=== PATIENT | female | born 1985 | race Caucasian/White ===

== ENCOUNTER 2016-11-20 12:45 | Emergency (ER) | payer OTHER ==
[2016-11-20] MEDS ORDERED: IBUPROFEN 600 MG TABLET PO STA (14:21)
[2016-11-20] MEDS ORDERED: IBUPROFEN 600 MG TABLET PO ONE (14:25)
[2016-11-20] MEDS ORDERED: ACETAMINOPHEN 325 MG TABLET PO STA (15:28)
[2016-11-20] MEDS ORDERED: ACETAMINOPHEN 325 MG TABLET PO ONE (15:29)
== END 2016-11-20 15:44 | disposition home or self-care (01) ==
DX: R05 Cough (principal); R07.89 Other chest pain; J45.909 Unspecified asthma, uncomplicated; Z87.891 Personal history of nicotine dependence
CPT/HCPCS: 71020; 93005; 93010; 99283; 99284; A9270

== ENCOUNTER 2016-12-29 13:24 | Outpatient (CLI) | payer OTHER ==
[2016-12-29] MEDS ORDERED: ALBUTEROL NEB 2.5 MG/3 ML INH ONE (13:57)
== END 2016-12-29 13:25 | disposition home or self-care (01) ==
DX: R06.02 Shortness of breath (principal)
CPT/HCPCS: 94060; J7613

== ENCOUNTER 2017-05-21 07:44 | Outpatient (CLI) | payer OTHER ==
[2017-05-21] MEDS ORDERED: IOPAMIDOL-300 100 ML VIAL IVP ONE (10:22)
[2017-05-21] MEDS ORDERED: IOPAMIDOL-300 50 ML VIAL PO ONE (10:22)
--- NOTE | 2017-05-21 12:54 | CT Report ---
CT ABDOMEN AND PELVIS WITH CONTRAST: 05/21/2017 CLINICAL INDICATION: Change in bowel habits, melena, bloating. TECHNIQUE: Axial CT images of the abdomen and pelvis were obtained with 100 mL Isovue-300 intravenou sly as well as oral contrast. In accordance with CT protocol optimization, one or more of the following dose reduction techniques w ere utilized for this exam: automated exposure control, adjustment of mA and/or KV based on patient size, or use of iterative reconstructive technique. FINDINGS: Limited evaluation of the lung bases is unremarkable. Abdomen: The liver, spleen, pancreas, kidneys, and adrenal glands are unremarkable. No bowel dilata tion, free gas, or free fluid is present. No abdominal adenopathy is seen. The gallbladder is not d ilated. Pelvis: The appendix is seen in the right lower quadrant, and is normal in caliber. No pelvic adeno zaira or free fluid is present. The pelvic organs appear unremarkable. Osseous structures are unremarkable. IMPRESSION: NORMAL CT OF THE ABDOMEN AND PELVIS WITH CONTRAST. NO EVIDENT ETIOLOGY FOR PATIENT'S SY MPTOMS. JOB #: [id number] EXT JOB #:[id number]
== END 2017-05-21 07:45 | disposition home or self-care (01) ==
LOC: DI 07:44
PROVIDERS: ATTEND Internal Medicine Gastroenterology
DX: K92.1 Melena (principal); R19.4 Change in bowel habit; R14.0 Abdominal distension (gaseous); R07.89 Other chest pain
CPT/HCPCS: 74177; Q9967

== ENCOUNTER 2018-04-08 16:57 | Emergency (ER) | payer OTHER ==
[2018-04-08 17:08] VITALS: BP 131/75
[2018-04-08] MEDS ORDERED: SODIUM CHLORIDE 0.9% 1,000 ML IV ONE (18:35)
--- NOTE | 2018-04-08 18:39 | ED Physician Documentation ---
History of Present Illness - Stated complaint Stated Complaint: ABD/BACK PX/NUMBNESS/LIGHTHEADED - Chief complaint Chief Complaint: General - History obtained from History obtained from: Patient - History of Present Illness Timing: Today Pain level max: 3 Pain level now: 0 - Additonal information Additional information: Patient is a 32-year-old female who presents to the emergency department with left flank pain today. This is been intermittent. Nothing makes the pain better or worse. Currently is not having the pain. Has never had symptoms like this before. States that when the pain became more intense her hands and feet were tingling and numb. Has not taken anything for the pain. Review of Systems Ten Systems: 10 systems reviewed and negative Constitutional: denies: Fever, Chills Ears: denies: Ear pain Nose: denies: Rhinorrhea / runny nose, Congestion Throat: denies: Sore throat Respiratory: denies: Cough GI: denies: Vomiting, Diarrhea : denies: Discharge, Now EGA Skin: denies: Rash Musculoskeletal: denies: Neck pain, Back pain PD PAST MEDICAL HISTORY - Past Medical History Past Medical History: Yes Cardiovascular: None Respiratory: Asthma, Shortness of breath, Other Endocrine/Autoimmune: None HEENT: Chronic vision loss Psych: Depression Derm: Eczema - Past Surgical History 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 - Present Medications Home Medications: Ambulatory Orders Medication Instructions Recorded Confirmed Montelukast [Singulair] 10 mg PO DAILY 11/20/16 06/11/17 Cephalexin [Keflex] 500 mg PO Q6H #28 capsule 04/08/18 Methylphenidate HCl [Concerta] 36 mg PO 04/08/18 04/08/18 - Allergies Allergies/Adverse Reactions: Allergies Allergy/AdvReac Type Severity Reaction Status Date / Time lithium Allergy Nausea Verified 04/08/18 17:08 - Social History Does the pt smoke?: No Smoking Status: Former smoker Does the pt drink ETOH?: No Does the pt have substance abuse?: No PD ED PE NORMAL - Vitals Vital signs reviewed: Yes - General General: Alert and oriented X 3, No acute distress, Well developed/nourished - HEENT HEENT: PERRL, EOMI, Ears normal, Moist mucous membranes, Pharynx benign - Neck Neck: Supple, no meningeal sign, No JVD, No bruit - Cardiac Cardiac: RRR, No murmur, Strong equal pulses - Respiratory Respiratory: No respiratory distress, Clear bilaterally - Abdomen Abdomen: Normal bowel sounds, Soft, Non tender, Non distended - Back Back: No CVA TTP, No spinal TTP - Derm Derm: Warm and dry - Extremities Extremities: No edema - Neuro Neuro: Alert and oriented X 3, 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0 D-Dimer < 200.0 L Sodium Potassium Chloride Carbon Dioxide Anion Gap BUN Creatinine Estimated GFR (MDRD) Glucose Calcium Total Bilirubin AST ALT Alkaline Phosphatase Troponin I Total Protein Albumin Globulin Albumin/Globulin Ratio Lipase Urine Color YELLOW Urine Clarity CLEAR Urine pH 6.0 Ur Specific [place] <=1.005 Urine Protein NEGATIVE Urine Glucose (UA) NEGATIVE Urine Ketones NEGATIVE Urine Occult Blood NEGATIVE Urine Nitrite NEGATIVE Urine Bilirubin NEGATIVE Urine Urobilinogen 0.2 (NORMAL) Ur Leukocyte Esterase SMALL H Urine RBC 6-10 H Urine WBC 11-25 H Ur Squamous Epith Cells MOD Squamous H Urine Bacteria Many H Urine Yeast PRESENT Ur Microscopic Review INDICATED Urine Culture Comments NOT INDICATED Urine HCG, Qual NEGATIVE 04/08/18 04/08/18 18:42 18:42 WBC RBC Hgb Hct MCV MCH MCHC RDW Plt Count MPV Neut # (Auto) Lymph # (Auto) [place] # (Auto) Eos # (Auto) Baso # (Auto) Absolute Nucleated RBC Nucleated RBC % D-Dimer Sodium 135 Potassium 4.4 Chloride 105 Carbon Dioxide 24 Anion Gap 6.0 BUN 9 Creatinine 0.8 Estimated GFR (MDRD) 83 L Glucose 89 Calcium 9.1 Total Bilirubin 0.7 AST 15 ALT 18 Alkaline Phosphatase 33 L Troponin I < 0.04 Total Protein 7.1 Albumin 4.2 Globulin 2.9 Albumin/Globulin Ratio 1.4 Lipase 20 L Urine Color Urine Clarity Urine pH Ur Specific [place] Urine Protein Urine Glucose (UA) Urine Ketones Urine Occult Blood Urine Nitrite Urine Bilirubin Urine Urobilinogen Ur Leukocyte Esterase Urine RBC Urine WBC Ur Squamous Epith Cells Urine Bacteria Urine Yeast Ur Microscopic Review Urine Culture Comments Urine HCG, Qual PD MEDICAL DECISION MAKING - ED course Complexity details: reviewed results, re-evaluated patient, considered differential, d/w patient ED course: Patient is a 32-year-old female with a constellation of symptoms of unclear etiology at this time. Does appear to have a UTI and will treat her for this. No evidence of aortic dissection, pulmonary embolus, acute coronary syndrome. Does not appear clinically to have a ureteral stone. She is very well-appearing , nontoxic. Afebrile. No vomiting. Patient counseled regarding signs and symptoms for which I believe and urgent re-evaluation would be necessary. Patient with good understanding of and agreement to plan and is comfortable going home at this time This document was made in part using voice recognition software. While efforts are made to proofread this document, sound alike and grammatical errors may occur. - Sepsis Event Vital Signs: Oxygen O2 Source Room air Departure - Departure Disposition: 01 Home, Self Care Clinical Impression: Flank pain UTI (urinary tract infection) Qualifiers: Urinary tract infection type: acute cystitis Hematuria presence: with hematuria Qualified Code(s): N30.01 - Acute cystitis with hematuria Condition: Good Instructions: ED UTI Cystitis Female Follow-Up: your,doctor in 1 week. [Other] Prescriptions: Cephalexin [Keflex] 500 mg PO Q6H #28 capsule Comments: The cause of your symptoms is unclear today. You do appear to have a bladder infection and we will treat you for this. There are no signs of a heart issue, blood clot in the lungs or other acute issue at this time. Return if you worsen Discharge Date/Time: 04/08/18 20:08
[2018-04-08 18:57] LABS: BASOPHILS % (AUTO) 0.2 %; EOSINOPHILS # (AUTO) 0.1 10^3/uL (0.0-0.7); EOSINOPHILS % (AUTO) 0.8 %; HGB - HEMOGLOBIN 13.4 g/dL (12.0-16.0); LYMPHOCYTES # (AUTO) 2.9 10^3/uL (1.5-3.5); LYMPHOCYTES % (AUTO) 31.3 %; MEAN CORPUSCULAR HEMOGLOBIN 29.3 pg (27.0-31.0); MEAN CORPUSCULAR HGB CONC 34.3 g/dL (32.0-36.0); MEAN CORPUSCULAR VOLUME 85.3 fL (81.0-99.0); MEAN PLATELET VOLUME 8.7 fL (7.9-10.8); MONOCYTES # (AUTO) 0.3 10^3/uL (0.0-1.0); MONOCYTES % (AUTO) 3.7 %; PLT - PLATELET COUNT 274 10^3/uL (130-450); RED BLOOD COUNT 4.56 10^6/uL (4.20-5.40); RED CELL DISTRIBUTION WIDTH 13.2 % (12.0-15.0); WHITE BLOOD COUNT 9.3 x10^3/uL (4.8-10.8)
[2018-04-08 18:59] LABS: BILIRUBIN,URINE NEGATIVE (NEGATIVE); GLUCOSE, URINE (UA) NEGATIVE (NEGATIVE); KETONES,URINE (UA) NEGATIVE (NEGATIVE); LEUKOCYTE ESTERASE, URINE SMALL (NEGATIVE); NITRITE,URINE NEGATIVE (NEGATIVE); OCCULT BLOOD,URINE NEGATIVE (NEGATIVE); PROTEIN,URINE NEGATIVE (NEGATIVE); UROBILINOGEN,URINE 0.2 (NORMAL) E.U./dL (NORMAL)
[2018-04-08 19:06] LABS: CLARITY,URINE CLEAR (CLEAR); HCG UR QUAL NEGATIVE
[2018-04-08 19:08] LABS: ALBUMIN 4.2 g/dL (3.2-5.5); ALBUMIN/GLOBULIN RATIO 1.4 (1.0-2.2); BILIRUBIN,TOTAL 0.7 mg/dL (0.2-1.0); CALCIUM 9.1 mg/dL (8.5-10.3); CREATININE 0.8 mg/dL (0.4-1.0); TOTAL PROTEIN 7.1 g/dL (6.7-8.2)
[2018-04-08 19:17] LABS: BACTERIA,URINE Many /HPF (None Seen); SQUAMOUS EPITHELIAL CELL,UR MOD Squamous (<= Few); YEAST,URINE PRESENT
[2018-04-08] MEDS ORDERED: cephALEXin 250 MG CAPSULE PO STA (19:29)
== END 2018-04-08 20:08 | disposition home or self-care (01) ==
LOC: ED 16:57
DX: R10.9 Unspecified abdominal pain (principal); N30.01 Acute cystitis with hematuria; Z87.891 Personal history of nicotine dependence
CPT/HCPCS: 36415; 80053; 81001; 81025; 83690; 84484; 85025; 85379; 93005; 96360; 99283; A9270; 81003; 87086

== ENCOUNTER 2018-04-11 20:25 | Emergency (ER) | payer OTHER ==
[2018-04-11 21:41] LABS: BASOPHILS % (AUTO) 0.1 %; EOSINOPHILS # (AUTO) 0.1 10^3/uL (0.0-0.7); EOSINOPHILS % (AUTO) 1.1 %; HGB - HEMOGLOBIN 13.4 g/dL (12.0-16.0); LYMPHOCYTES # (AUTO) 3.2 10^3/uL (1.5-3.5); LYMPHOCYTES % (AUTO) 36.2 %; MEAN CORPUSCULAR HEMOGLOBIN 29.7 pg (27.0-31.0); MEAN CORPUSCULAR HGB CONC 34.3 g/dL (32.0-36.0); MEAN CORPUSCULAR VOLUME 86.6 fL (81.0-99.0); MEAN PLATELET VOLUME 9.2 fL (7.9-10.8); MONOCYTES # (AUTO) 0.5 10^3/uL (0.0-1.0); MONOCYTES % (AUTO) 5.3 %; NEUTROPHILS # (AUTO) 5.1 10^3/uL (1.5-6.6); NEUTROPHILS % (AUTO) 57.3 %; PLT - PLATELET COUNT 306 10^3/uL (130-450); RED CELL DISTRIBUTION WIDTH 13.5 % (12.0-15.0); WHITE BLOOD COUNT 8.9 x10^3/uL (4.8-10.8)
[2018-04-11 21:42] LABS: BILIRUBIN,URINE NEGATIVE (NEGATIVE); GLUCOSE, URINE (UA) NEGATIVE (NEGATIVE); KETONES,URINE (UA) NEGATIVE (NEGATIVE); LEUKOCYTE ESTERASE, URINE TRACE (NEGATIVE); NITRITE,URINE NEGATIVE (NEGATIVE); OCCULT BLOOD,URINE NEGATIVE (NEGATIVE); PH,URINE 5.5 PH (5.0-7.5); PROTEIN,URINE NEGATIVE (NEGATIVE); UROBILINOGEN,URINE 0.2 (NORMAL) E.U./dL (NORMAL)
[2018-04-11 21:42] LABS: ALBUMIN 4.2 g/dL (3.2-5.5); ALBUMIN/GLOBULIN RATIO 1.7 (1.0-2.2); BILIRUBIN,TOTAL 0.5 mg/dL (0.2-1.0); CREATININE 0.8 mg/dL (0.4-1.0); TOTAL PROTEIN 6.7 g/dL (6.7-8.2)
[2018-04-11 21:43] LABS: CLARITY,URINE CLEAR (CLEAR); HCG UR QUAL NEGATIVE
[2018-04-11 21:44] LABS: BACTERIA,URINE None Seen /HPF (None Seen); RBC,URINE None Seen /HPF (0-5); SQUAMOUS EPITHELIAL CELL,UR MANY Squamous (<= Few)
--- NOTE | 2018-04-11 22:02 | ED Physician Documentation ---
PD HPI ABD PAIN - Stated complaint Stated Complaint: FEMALE - History obtained from History obtained from: Patient - History of Present Illness Timing - onset: How many days ago (4) Timing - details: Gradual onset, Still present Quality: Cramping, Aching Location: Suprapubic Associated symptoms: Nausea. No: Fever, Vomiting, Diarrhea, Constipation Similar symptoms before: Work up / diagnostics, Treatment Recently seen: Clinic, Emergency Dept - Additional information Additional information: Patient is a 32 year old female with no significant past medical history who is presenting to the emergency department for suprapubic pain. patient was diagnosed with a urinary tract infection about three days prior. patient has been on keflex but states that she still has some symptoms. Patient saw her pmd who told her to continue with the treatment. Patient called the nurses line who told her to come to the emergency department. patient denies any fevers, sexual activity, vaginal bleeding or vaginal discharge. Review of Systems Constitutional: denies: Fever, Chills, Myalgias Cardiac: denies: Chest pain / pressure, Palpitations Respiratory: denies: Dyspnea, Cough, Wheezing GI: reports: Abdominal Pain, Nausea. denies: Abdominal Swelling, Vomiting, Constipation, Diarrhea : reports: Dysuria. 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 - Present Medications Home Medications: Ambulatory Orders Medication Instructions Recorded Confirmed Montelukast [Singulair] 10 mg PO DAILY 11/20/16 06/11/17 Cephalexin [Keflex] 500 mg PO Q6H #28 capsule 04/08/18 Methylphenidate HCl [Concerta] 36 mg PO 04/08/18 04/08/18 Ondansetron Odt [Zofran] 4 mg TL Q6H PRN #14 tablet 04/11/18 Phenazopyridine HCl [Pyridium] 200 mg PO TID PRN #6 tablet 04/11/18 - Allergies Allergies/Adverse Reactions: Allergies Allergy/AdvReac Type Severity Reaction Status Date / Time lithium Allergy Nausea Verified 04/11/18 22:16 - Social History Does the pt smoke?: No Smoking Status: Former smoker Does the pt drink ETOH?: No Does the pt have substance abuse?: No PD ED PE NORMAL - Vitals Vital signs reviewed: Yes - General General: Alert and oriented X 3, No acute distress, Well developed/nourished - HEENT HEENT: Atraumatic, PERRL, Moist mucous membranes - Neck Neck: Supple, no meningeal sign - Cardiac Cardiac: RRR - Respiratory Respiratory: No respiratory distress - Abdomen Abdomen: Soft, Non tender, Non distended - Back Back: No CVA TTP - Derm Derm: Normal color, Warm and dry - Extremities Extremities: No deformity - Neuro Neuro: Alert and oriented X 3 Eye Opening: Spontaneous Motor: Obeys Commands Verbal: Oriented GCS Score: 15 Results - Vitals Vitals: Vital Signs - 24 hr 04/11/18 22:27 Heart Rate 68 Respiratory 16 Rate Blood Pressure 113/75 O2 Saturation 100 Oxygen O2 Source Room air - Labs Labs: Laboratory Tests 04/11/18 04/11/18 04/11/18 21:20 21:20 21:29 WBC 8.9 RBC 4.50 Hgb 13.4 Hct 39.0 MCV 86.6 MCH 29.7 MCHC 34.3 RDW 13.5 Plt Count 306 MPV 9.2 Neut # (Auto) 5.1 Lymph # (Auto) 3.2 [place] # (Auto) 0.5 Eos # (Auto) 0.1 Baso # (Auto) 0.0 Absolute Nucleated RBC 0.00 Nucleated RBC % 0.0 Sodium 137 Potassium 3.9 Chloride 108 Carbon Dioxide 24 Anion Gap 5.0 L BUN 12 Creatinine 0.8 Estimated GFR (MDRD) 83 L Glucose 92 Calcium 9.0 Total Bilirubin 0.5 AST 13 ALT 15 Alkaline Phosphatase 34 L Total Protein 6.7 Albumin 4.2 Globulin 2.5 Albumin/Globulin Ratio 1.7 Lipase 20 L Urine Color YELLOW Urine Clarity CLEAR Urine pH 5.5 Ur Specific [place] 1.025 Urine Protein NEGATIVE Urine Glucose (UA) NEGATIVE Urine Ketones NEGATIVE Urine Occult Blood NEGATIVE Urine Nitrite NEGATIVE Urine Bilirubin NEGATIVE Urine Urobilinogen 0.2 (NORMAL) Ur Leukocyte Esterase TRACE H Urine RBC None Seen Urine WBC 0-3 Ur Squamous Epith Cells MANY Squamous H Urine Bacteria None Seen Ur Microscopic Review INDICATED Urine Culture Comments NOT INDICATED Urine HCG, Qual NEGATIVE PD MEDICAL DECISION MAKING - ED course Complexity details: reviewed old records, reviewed results, re-evaluated patient , considered differential, d/w patient ED course: Patient was seen and examined at bedside. patient was well appearing and in no distress. Patient's abdomen was soft, non tender, non distended. there was no cva tenderness. urine and labs were collected. when patient's labs and urine came back there was no sign of dehydration or systemic disease. urinalysis was improving. patient was treated with zofran and pyridium. while appendicitis, ovarian torsion, cholecystitis, pyelonephritis were all considered they were unlikely and there was no indication for imaging at this time. Patient was well appearing and in no distress and was stable for discharge with outpatient follow up. - Sepsis Event Vital Signs: Vital Signs - 24 hr 04/11/18 22:27 Heart Rate 68 Respiratory 16 Rate Blood Pressure 113/75 O2 Saturation 100 Oxygen O2 Source Room air Departure - Departure Disposition: 01 Home, Self Care Clinical Impression: UTI (urinary tract infection) Condition: Good Instructions: ED UTI Cystitis Female Follow-Up: primary,care provider [Other] - Within 3 Days Prescriptions: Ondansetron Odt [Zofran] 4 mg TL Q6H PRN #14 tablet PRN Reason: Nausea / Vomiting Phenazopyridine HCl [Pyridium] 200 mg PO TID PRN #6 tablet PRN Reason: dysuria Comments: Your urinalysis today showed that your symptoms are improving. You should finish your course of antibiotics. You can take pyridium, motrin and tylenol as needed for pain. You should stay well hydrated and increase your fluid intake. You may return to the emergency department at any time for new, worsening or uncontrollable symptoms. Discharge Date/Time: 04/11/18 22:36
[2018-04-11] MEDS ORDERED: PHENAZOPYRIDINE 100 MG TABLET PO STA (22:07)
[2018-04-11] MEDS ORDERED: ONDANSETRON ODT 4 MG TABLET TL STA (22:13)
[2018-04-11 22:30] VITALS: BP 113/75
== END 2018-04-11 22:36 | disposition home or self-care (01) ==
LOC: ED 20:25
DX: N39.0 Urinary tract infection, site not specified (principal); Z87.891 Personal history of nicotine dependence
CPT/HCPCS: 36415; 80053; 81001; 81025; 83690; 85025; 99282; 99283; A9270; Q0162; 81003; 87086

== ENCOUNTER 2018-09-16 12:43 | Emergency (ER) | payer OTHER ==
[2018-09-16 12:53] VITALS: BP 127/89
--- NOTE | 2018-09-16 13:47 | ED Physician Documentation ---
History of Present Illness - Stated complaint Stated Complaint: DIZZY/COUGH/SINUS PRESSURE - Chief complaint Chief Complaint: Abd Pain - History obtained from History obtained from: Patient - History of Present Illness Timing: Enter time (0200), Today - Additonal information Additional information: 32-year-old female who over the past 2 weeks has had a upper respiratory infection that appears to have cleared suddenly developed at 2:00 in the morning intense sharp periumbilical pain followed by flow through diarrhea for 2 hours. She had vomiting at that time as well. Her symptoms resolved by 4:30 AM and she is come to the emergency department for evaluation this morning. Review of Systems Constitutional: reports: Chills, Fatigue. denies: Fever Eyes: denies: Decreased vision Ears: denies: Ear pain Nose: reports: Rhinorrhea / runny nose, Congestion (improving) Throat: denies: Sore throat Cardiac: denies: Chest pain / pressure, Palpitations Respiratory: reports: Cough. 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 - Present Medications Home Medications: Ambulatory Orders Medication Instructions Recorded Confirmed Methylphenidate HCl [Concerta] 36 mg PO DAILY 04/08/18 04/08/18 Loratadine [Claritin] 10 mg ORAL QPM 09/16/18 09/16/18 cloNIDine HCl [Clonidine HCl] 0.1 mg ORAL QPM 09/16/18 09/16/18 - Allergies Allergies/Adverse Reactions: Allergies Allergy/AdvReac Type Severity Reaction Status Date / Time latex Allergy Rash Verified 09/16/18 12:53 lithium Allergy Nausea Verified 04/11/18 22:16 - Social History Does the pt smoke?: No Smoking Status: Former smoker Does the pt drink ETOH?: No Does the pt have substance abuse?: No PD ED PE NORMAL - Vitals Vital signs reviewed: Yes (tachy and hypertensive ) - General General: Alert and oriented X 3, No acute distress, Well developed/nourished - HEENT HEENT: Atraumatic, PERRL, EOMI, Ears normal, Moist mucous membranes, Pharynx benign, Dentition benign - Neck Neck: Supple, no meningeal sign, No bony TTP - Cardiac Cardiac: RRR, No murmur - Respiratory Respiratory: No respiratory distress, Clear bilaterally - Abdomen Abdomen: Normal bowel sounds, Soft, Non tender, Non distended, No organomegaly - Back Back: No CVA TTP, No spinal TTP - Derm Derm: Normal color, Warm and dry, No rash - Extremities Extremities: No deformity, No edema - Neuro Neuro: Alert and oriented X 3, No motor deficit, No sensory deficit, Normal speech Eye Opening: Spontaneous Motor: Obeys Commands Verbal: Oriented GCS Score: 15 - Psych Psych: Normal mood, Normal affect Results - Vitals Vitals: Vital Signs - 24 hr 09/16/18 12:48 Temperature 36.7 C Heart Rate 101 H Respiratory 18 Rate Blood Pressure 127/89 H O2 Saturation 100 Oxygen O2 Source Room air - Labs Labs: Laboratory Tests 09/16/18 13:45 Urine Color YELLOW Urine Clarity CLEAR Urine pH 6.0 Ur Specific [place] >=1.030 H Urine Protein NEGATIVE Urine Glucose (UA) NEGATIVE Urine Ketones NEGATIVE Urine Occult Blood TRACE-INTA Urine Nitrite NEGATIVE Urine Bilirubin NEGATIVE Urine Urobilinogen 0.2 (NORMAL) Ur Leukocyte Esterase NEGATIVE Ur Microscopic Review NOT INDICATED Urine Culture Comments NOT INDICATED Urine HCG, Qual NEGATIVE Procedures - Bedside sono Bedside sono by EMP: With use of bedside ultrasound the right upper quadrant is imaged and the gallbladder appears contracted and without obvious stone. The area is nontender to sonographic palpation. PD MEDICAL DECISION MAKING - ED course Complexity details: reviewed results, re-evaluated patient, considered differential, d/w patient ED course: 32-year-old female with what sounds like an improved and resolved upper respiratory tract infection has now developed an acute abdominal process that also appears to be resolved at the time of evaluation here in the emergency department. She did have some pizza last night I did check her gallbladder I did not see any obvious stones it does appears contracted and the patient has a nontender examination this afternoon in the emergency department. She is currently without symptoms. Departure - Departure Disposition: 01 Home, Self Care Clinical Impression: Gastroenteritis Instructions: ED Gastroenteritis Non Infec Follow-Up: LYRIC Varela [Provider Group]
[2018-09-16 14:11] LABS: BILIRUBIN,URINE NEGATIVE (NEGATIVE); GLUCOSE, URINE (UA) NEGATIVE (NEGATIVE); KETONES,URINE (UA) NEGATIVE (NEGATIVE); LEUKOCYTE ESTERASE, URINE NEGATIVE (NEGATIVE); NITRITE,URINE NEGATIVE (NEGATIVE); OCCULT BLOOD,URINE TRACE-INTA (NEGATIVE); PROTEIN,URINE NEGATIVE (NEGATIVE); UROBILINOGEN,URINE 0.2 (NORMAL) E.U./dL (NORMAL)
[2018-09-16 14:20] LABS: CLARITY,URINE CLEAR (CLEAR)
[2018-09-16 14:21] LABS: HCG UR QUAL NEGATIVE
== END 2018-09-16 14:35 | disposition home or self-care (01) ==
LOC: ED 12:43
DX: K52.89 Other specified noninfective gastroenteritis and colitis (principal); Z87.891 Personal history of nicotine dependence
CPT/HCPCS: 81001; 81003; 81025; 87086; 99283

== ENCOUNTER 2019-01-06 23:48 | Outpatient (CLI) | payer OTHER | END 2019-01-06 23:49 | disposition critical access hospital (66) | LOC: EMS 23:48 | PROVIDERS: ATTEND Surgery | DX: R07.9 Chest pain, unspecified (principal); R20.0 Anesthesia of skin | CPT/HCPCS: A0425; A0427 ==

== ENCOUNTER 2019-01-07 00:15 | Emergency (ER) | payer OTHER ==
[2019-01-07] MEDS ORDERED: KETOROLAC 15 MG/ML VIAL IVP STA (00:24)
--- NOTE | 2019-01-07 00:31 | ED Physician Documentation ---
PD HPI CHEST PAIN - Stated complaint Stated Complaint: CP RADIATING TO BACK - Chief complaint Chief Complaint: Cardiac - History obtained from History obtained from: Patient - History of Present Illness Timing - onset: How many hours ago (2) Timing - onset during: Rest Timing - duration: Hours (2) Timing - details: Abrupt onset Pain level max: 8 Pain level now: 7 Quality: Sharp Location: Other (R upper back) Radiation: No: Jaw, Neck, Back, Abdominal, Left upper extremity, Right upper extremity, Other Improved by: Rest Worsened by: Movement, Palpation Associated symptoms: No: Shortness of air, Diaphoresis, Nausea, Vomiting, Feeling faint / dizzy, General Weakness, Palpitations, Cough Similar symptoms before: Has not had sx before Recently seen: Not recently seen Review of Systems Constitutional: reports: Fever Nose: denies: Rhinorrhea / runny nose, Congestion Throat: denies: Sore throat Cardiac: reports: Chest pain / pressure (Right upper chest and right upper back pain) Respiratory: denies: Cough GI: denies: Abdominal Pain, Nausea, Vomiting, Diarrhea Skin: denies: Rash Musculoskeletal: denies: Neck pain Neurologic: denies: Focal weakness, Numbness, Headache PD PAST MEDICAL HISTORY - Past Medical History Cardiovascular: None Respiratory: Asthma, Shortness of breath, Other Endocrine/Autoimmune: None HEENT: Chronic vision loss Psych: Depression Derm: Eczema - Past Surgical History Past Surgical History: No /[employer]: Other - Present Medications Home Medications: Ambulatory Orders Medication Instructions Recorded Confirmed Methylphenidate HCl [Concerta] 36 mg PO DAILY 04/08/18 04/08/18 Loratadine [Claritin] 10 mg ORAL QPM 09/16/18 09/16/18 cloNIDine HCl [Clonidine HCl] 0.1 mg ORAL QPM 09/16/18 09/16/18 Doxycycline Hyclate 100 mg PO BID #20 capsule 01/07/19 Hydrocodone/Acetaminophen 1 - 2 each PO Q6H PRN #10 tablet 01/07/19 [Hydrocodon-Acetaminophen 5-325] - Allergies Allergies/Adverse Reactions: Allergies Allergy/AdvReac Type Severity Reaction Status Date / Time latex Allergy Rash Verified 09/16/18 12:53 lithium Allergy Nausea Verified 04/11/18 22:16 risperidone [From Risperdal] Allergy Unknown Verified 01/07/19 00:23 - Social History Does the pt smoke?: No Smoking Status: Former smoker Does the pt drink ETOH?: No Does the pt have substance abuse?: No PD ED PE NORMAL - Vitals Vital signs reviewed: Yes - General General: Alert and oriented X 3, No acute distress, Well developed/nourished - HEENT HEENT: PERRL, Moist mucous membranes - Neck Neck: Supple, no meningeal sign - Cardiac Cardiac: Strong equal pulses, Other (Tachycardic) - Respiratory Respiratory: No respiratory distress, Clear bilaterally - Abdomen Abdomen: Soft, Non distended, Other (Tender to palpation right upper quadrant. Positive Soni sign) - Back Back: No spinal TTP, Other (Tender to palpation right upper back, Worse with movement of the soulder as well.) - Derm Derm: Warm and dry - Extremities Extremities: No edema - Neuro Neuro: Alert and oriented X 3 - Psych Psych: Normal mood, Normal affect Results - Vitals Vitals: Vital Signs - 24 hr 01/07/19 01/07/19 01/07/19 00:15 00:28 01:03 Temperature 37.1 C Heart Rate 112 H 112 H 119 H Heart Rate [ Sitting] Heart Rate [ Standing] Heart Rate [ Supine] Respiratory 18 13 17 Rate Blood Pressure 133/81 H 122/76 Blood Pressure [Sitting] Blood Pressure [Standing] Blood Pressure [Supine] O2 Saturation 100 100 99 01/07/19 01/07/19 01/07/19 01:47 02:17 02:21 Temperature 38.2 C H Heart Rate 134 H Heart Rate [ 137 H Sitting] Heart Rate [ 163 H Standing] Heart Rate [ 117 H Supine] Respiratory 12 Rate Blood Pressure 115/72 Blood Pressure 118/78 [Sitting] Blood Pressure 102/72 [Standing] Blood Pressure 111/63 [Supine] O2 Saturation 99 01/07/19 01/07/19 01/07/19 02:54 04:05 05:00 Temperature 37.6 C H Heart Rate 126 H 126 H 116 H Heart Rate [ Sitting] Heart Rate [ Standing] Heart Rate [ Supine] Respiratory 19 20 14 Rate Blood Pressure 120/70 119/70 124/76 Blood Pressure [Sitting] Blood Pressure [Standing] Blood Pressure [Supine] O2 Saturation 99 100 100 Oxygen O2 Source Room air - EKG (time done) 0017 Rate: Rate (enter#) (114) Rhythm: Sinus tachycardia [place]: Normal Intervals: Normal [place] QRS: Normal Ischemia: Normal ST segments - Labs Labs: Laboratory Tests 01/07/19 01/07/19 01/07/19 01:00 01:00 01:00 WBC 11.5 H RBC 4.57 Hgb 13.0 Hct 37.8 MCV 82.8 MCH 28.5 MCHC 34.4 RDW 13.4 Plt Count 214 MPV 8.3 Neut # (Auto) 9.8 H Lymph # (Auto) 1.2 L [place] # (Auto) 0.5 Eos # (Auto) 0.0 Baso # (Auto) 0.0 Absolute Nucleated RBC 0.01 Nucleated RBC % 0.1 D-Dimer Sodium 137 Potassium 3.8 Chloride 104 Carbon Dioxide 24 Anion Gap 9.0 BUN 10 Creatinine 0.8 Estimated GFR (MDRD) 83 L Glucose 109 H Calcium 9.1 Total Bilirubin 0.6 AST 20 ALT 28 Alkaline Phosphatase 58 Troponin I < 0.04 Total Protein 6.6 L Albumin 4.0 Globulin 2.6 Albumin/Globulin Ratio 1.5 Lipase 23 Urine Color Urine Clarity Urine pH Ur Specific [place] Urine Protein Urine Glucose (UA) Urine Ketones Urine Occult Blood Urine Nitrite Urine Bilirubin Urine Urobilinogen Ur Leukocyte Esterase Ur Microscopic Review Urine Culture Comments Urine HCG, Qual Influenza A (Rapid) Influenza B (Rapid) 01/07/19 01/07/19 01/07/19 01:00 02:24 03:30 WBC RBC Hgb Hct MCV MCH MCHC RDW Plt Count MPV Neut # (Auto) Lymph # (Auto) [place] # (Auto) Eos # (Auto) Baso # (Auto) Absolute Nucleated RBC Nucleated RBC % D-Dimer 195.0 L Sodium Potassium Chloride Carbon Dioxide Anion Gap BUN Creatinine Estimated GFR (MDRD) Glucose Calcium Total Bilirubin AST ALT Alkaline Phosphatase Troponin I Total Protein Albumin Globulin Albumin/Globulin Ratio Lipase Urine Color YELLOW Urine Clarity CLEAR Urine pH 6.5 Ur Specific [place] 1.015 Urine Protein NEGATIVE Urine Glucose (UA) NEGATIVE Urine Ketones NEGATIVE Urine Occult Blood NEGATIVE Urine Nitrite NEGATIVE Urine Bilirubin NEGATIVE Urine Urobilinogen 0.2 (NORMAL) Ur Leukocyte Esterase NEGATIVE Ur Microscopic Review NOT INDICATED Urine Culture Comments NOT INDICATED Urine HCG, Qual NEGATIVE Influenza A (Rapid) Negative Influenza B (Rapid) Negative - Rads (name of study) Chest x-ray Radiology: Prelim report reviewed, EMP read contemporaneously, See rad report (No acute disease) CT pulmonary angiogram Radiology: Prelim report reviewed, EMP read contemporaneously, See rad report (No main, lobar, or segmental embolism. Subsegmental vessels are suboptimally opacified. 2. Small peribronchial consolidation abutting the pleural surface within the paramediastinal portion of the right middle lobe. This is most worrisome for a pneumonia. 3. No acute abdominal or pelvic abnormality demonstrated. ) CT abdomen pelvis with contrast Radiology: Prelim report reviewed, EMP read contemporaneously, See rad report (No main, lobar, or segmental embolism. Subsegmental vessels are suboptimally opacified. 2. Small peribronchial consolidation abutting the pleural surface within the paramediastinal portion of the right middle lobe. This is most worrisome for a pneumonia. 3. No acute abdominal or pelvic abnormality demonstrated. ) PD MEDICAL DECISION MAKING - ED course Complexity details: reviewed results, re-evaluated patient, considered differential, d/w patient ED course: 33-year-old female presents to the emergency department with right-sided pleuritic chest pain as well as upper right back pain. She was also tender in the right upper quadrant on bedside evaluation. CT reveals small peribronchial consolidation suspicious for pneumonia in the right middle lobe. Likely that this is the cause of her pain. No PE. No cholecystitis. She is well- appearing, nontoxic. No hypoxia. Pain well controlled. Will start on doxycycline. Patient counseled regarding signs and symptoms for which I believe and urgent re-evaluation would be necessary. Patient with good understanding of and agreement to plan and is comfortable going home at this time This document was made in part using voice recognition software. While efforts are made to proofread this document, sound alike and grammatical errors may occur. Departure - Departure Disposition: 01 Home, Self Care Clinical Impression: Pneumonia Qualifiers: Pneumonia type: due to unspecified organism Laterality: right Lung location: middle lobe of lung Qualified Code(s): J18.1 - Lobar pneumonia, unspecified organism Condition: Good Instructions: ED Pneumonia Adult Follow-Up: your,doctor in 3 days [Other] Prescriptions: Doxycycline Hyclate 100 mg PO BID #20 capsule Hydrocodone/Acetaminophen [Hydrocodon-Acetaminophen 5-325] 1 - 2 each PO Q6H PRN #10 tablet PRN Reason: pain Comments: Take all antibiotics until gone. Return if you worsen. Follow-up with your doctor for further care. Do not drink alcohol or drive while on narcotic pain medicine. Note that many narcotic pain relievers also contain tylenol/acetaminophen. Please ensure that your total dose of acetaminophen from all sources does not exceed 3 grams (3000mg) per day. You may constipated on this medication, take a stool softener such as "Colace" twice a day while you are on it. Also recommend a [id number] laxative such as senna or MiraLAX any day that you do not have a bowel movement. If you received narcotic pain medication in the emergency department, do not drive or operate machinery for the next 24 hours.
[2019-01-07] MEDS ORDERED: LORazepam 2 MG/ML VIAL IVP STA (01:01)
[2019-01-07 01:09] LABS: BASOPHILS % (AUTO) 0.2 %; EOSINOPHILS % (AUTO) 0.2 %; LYMPHOCYTES # (AUTO) 1.2 10^3/uL (1.5-3.5); LYMPHOCYTES % (AUTO) 10.2 %; MEAN CORPUSCULAR HEMOGLOBIN 28.5 pg (27.0-31.0); MEAN CORPUSCULAR HGB CONC 34.4 g/dL (32.0-36.0); MEAN CORPUSCULAR VOLUME 82.8 fL (81.0-99.0); MEAN PLATELET VOLUME 8.3 fL (7.9-10.8); MONOCYTES # (AUTO) 0.5 10^3/uL (0.0-1.0); MONOCYTES % (AUTO) 4.2 %; NEUTROPHILS # (AUTO) 9.8 10^3/uL (1.5-6.6); NEUTROPHILS % (AUTO) 85.2 %; PLT - PLATELET COUNT 214 10^3/uL (130-450); RED BLOOD COUNT 4.57 10^6/uL (4.20-5.40); RED CELL DISTRIBUTION WIDTH 13.4 % (12.0-15.0); WHITE BLOOD COUNT 11.5 x10^3/uL (4.8-10.8)
[2019-01-07 01:21] LABS: ALBUMIN/GLOBULIN RATIO 1.5 (1.0-2.2); BILIRUBIN,TOTAL 0.6 mg/dL (0.2-1.0); CALCIUM 9.1 mg/dL (8.5-10.3); CREATININE 0.8 mg/dL (0.4-1.0); TOTAL PROTEIN 6.6 g/dL (6.7-8.2)
--- NOTE | 2019-01-07 01:26 | XRAY Report ---
Reason: Chest Pain Procedure Date: 01/07/2019 Accession Number: [id number] / [id number] Procedure: XR - Chest 1 View X-Ray CPT Code: 93104 FULL RESULT: EXAM: CHEST RADIOGRAPHY EXAM DATE: 01/07/2019 01:15 AM. CLINICAL HISTORY: Chest Pain. COMPARISON: CHEST 2 VIEW PA/LAT 11/20/2016 2:26 PM. TECHNIQUE: 1 view. FINDINGS: Lungs/Pleura: No focal opacities evident. No pleural effusion. No pneumothorax. Mediastinum: Within exam limitations, the cardiomediastinal contour is normal. Other: None. IMPRESSION: No acute intrathoracic plain film abnormality. RADIA
[2019-01-07] MEDS ORDERED: MORPHINE 2 MG/ML SYRINGE IVP STA (01:56)
[2019-01-07] MEDS ORDERED: SODIUM CHLORIDE 0.9% 1,000 ML IV ONE ×3 (02:23→02:24)
[2019-01-07 03:40] LABS: BILIRUBIN,URINE NEGATIVE (NEGATIVE); GLUCOSE, URINE (UA) NEGATIVE (NEGATIVE); KETONES,URINE (UA) NEGATIVE (NEGATIVE); LEUKOCYTE ESTERASE, URINE NEGATIVE (NEGATIVE); NITRITE,URINE NEGATIVE (NEGATIVE); OCCULT BLOOD,URINE NEGATIVE (NEGATIVE); PH,URINE 6.5 PH (5.0-7.5); PROTEIN,URINE NEGATIVE (NEGATIVE); UROBILINOGEN,URINE 0.2 (NORMAL) E.U./dL (NORMAL)
[2019-01-07 03:45] LABS: CLARITY,URINE CLEAR (CLEAR); HCG UR QUAL NEGATIVE
[2019-01-07] MEDS ORDERED: IOPAMIDOL-300 100 ML VIAL ONE (04:05)
[2019-01-07] MEDS ORDERED: KETOROLAC 30 MG/ML VIAL IVP STA (04:52)
[2019-01-07] MEDS ORDERED: IOPAMIDOL-300 100 ML VIAL IVP ONE (04:59)
[2019-01-07 05:01] VITALS: BP 124/76
--- NOTE | 2019-01-07 05:23 | CT Report ---
Reason: R sided pleuritic CP Procedure Date: 01/07/2019 Accession Number: [id number] / [id number] Procedure: CT - ANGIO CHEST W/WO CPT Code: FULL RESULT: EXAM: CT ANGIOGRAM CHEST AND CT ABDOMEN AND PELVIS EXAM DATE: 01/07/2019 05:01 AM. CLINICAL HISTORY: Right upper quadrant pain, right-sided pleuritic chest pain. COMPARISON: ABDOMEN/PELVIS W/ 01/07/2019 4:30 AM, ABDOMEN/PELVIS W/ 05/21/2017 10:10 AM. TECHNIQUE: Routine helical imaging was performed through the chest in the pulmonary arterial phase and through the abdomen pelvis during the venous phase. IV Contrast: 100 mL Isovue 300. Enteric contrast: No. Reconstructions: Coronal 3D MIP reconstructions. Sagittal and coronal. In accordance with CT protocol optimization, one or more of the following dose reduction techniques were utilized for this exam: automated exposure control, adjustment of mA and/or KV based on patient size, or use of iterative reconstructive technique. FINDINGS: CT CHEST ANGIOGRAM: Pulmonary Arteries: There is adequate opacification through the segmental arteries. No evidence for acute or chronic pulmonary emboli. Lungs and Pleura: Small area of consolidation within the right middle lobe adjacent to the mediastinum peribronchial distribution (image 91 series 3). Small subpleural oval nodular density within the right middle lobe anterolaterally (image 93 series 3), probably a intrapulmonary lymph node. No significant consolidation is noted elsewhere. No effusion. No definite pneumothorax. Central Airways: Visualized central airways are without suspicious filling defects. Chest Wall: No significant abnormality. Thyroid: No significant abnormality. Mediastinum: No significant abnormality. Heart: Normal in size. No significant pericardial effusion. Thoracic Aorta: Normal caliber. ABDOMEN: Liver: No significant abnormality. Stomach/Distal Esophagus: No significant abnormality. Gallbladder: No significant abnormality. Bile Ducts: No significant abnormality. Pancreas: No significant abnormality. Spleen: No significant abnormality. Kidneys: No suspicious solid appearing lesion. No hydronephrosis. Adrenals: No significant abnormality. Bowel: No obstruction. Average fecal residual. Appendix: Normal. Lymph Nodes: No pathologically enlarged nodes. Vasculature: Normal caliber aorta. Fluid: No significant free fluid. Abdominal Wall: No significant abnormality. Other: No significant abnormality. PELVIS: Uterus and Ovaries: Physiologic appearance. Bladder: No significant abnormality. Lymph Nodes: No pathologically enlarged nodes. Fluid: No significant free fluid. Other: None. BONES: No suspicious bony lesions. IMPRESSION: 1. No main, lobar, or segmental embolism. Subsegmental vessels are suboptimally opacified. 2. Small peribronchial consolidation abutting the pleural surface within the paramediastinal portion of the right middle lobe. This is most worrisome for a pneumonia. 3. No acute abdominal or pelvic abnormality demonstrated. RADIA
[2019-01-07] MEDS ORDERED: DOXYCYCLINE 100 MG TABLET PO STA (05:30)
== END 2019-01-07 06:42 | disposition home or self-care (01) ==
LOC: ED 00:15
DX: J18.1 Lobar pneumonia, unspecified organism (principal); Z87.891 Personal history of nicotine dependence
CPT/HCPCS: 36415; 71045; 71275; 74177; 80053; 81003; 81025; 83690; 84484; 85025; 85379; 87275; 87276; 93005; 96361; 96374; 96375; 96376; 99284; 99285; A9270; J2060; Q9967; 81001; 87086